=== PATIENT | male | born 1955 | race Caucasian/White ===

== ENCOUNTER 2023-05-06 11:29 | Emergency (ER) | payer OTHER ==
[~2023-05-06] VITALS: Ht 185.4 cm; Wt 83.9 kg
[2023-05-06] MEDS ORDERED: BACLOFEN (10 MG) 10 MG TABLET ONE (12:18)
[2023-05-06] MEDS ORDERED: KETOROLAC TROMETHAMINE INJ 30 MG/ML VIAL ONE (12:18)
[2023-05-06] MEDS ORDERED: MORPHINE SULFATE INJ 4 MG/ML DISP.SYRIN ONE (12:18)
[2023-05-06] MEDS: MORPHINE SULFATE INJ 2 MG/ML DISP.SYRIN IV ONE (12:30)
[2023-05-06] MEDS: BACLOFEN (10 MG) 10 MG TABLET PO ONE (12:30)
[2023-05-06] MEDS: IV NS 0.9% 1,000 ML BAG IV ONE (12:30)
[2023-05-06] MEDS: KETOROLAC TROMETHAMINE INJ 30 MG/ML VIAL IV ONE (12:30)
[2023-05-06] MEDS ORDERED: BACL10TA PO (13:20)
[2023-05-06] MEDS ORDERED: KETO10TA2 PO (13:20)
[2023-05-06] MEDS ORDERED: HYDR-3980 PO (13:20)
[2023-05-06 14:09] VITALS: BP 137/93; TEMP 98.4; O2SAT 100
== END 2023-05-06 14:09 | disposition home or self-care (01) ==
LOC: ER 12:03
DX: M54.9 Dorsalgia, unspecified (principal); Z98.890 Other specified postprocedural states; Z79.899 Other long term (current) drug therapy; Z88.5 Allergy status to narcotic agent
CPT/HCPCS: 99284; 96374; 96361; 96375; J2270; J1885; J7030